=== PATIENT | female | born 1950 | race African-American/Black ===

== ENCOUNTER 2017-12-15 15:11 | Inpatient (IN) ==
[2017-12-15 16:48] LABS: Basophils # 0.1 10*3/uL (0.0-0.2); Basophils % 0.3 % (0.0-0.8); Hematocrit 40.5 VOL% (35.7-47.0); Hemoglobin 13.7 GM/DL (12.0-16.0); Immature Granulocytes % 1.2 %; Immature Granulocytes Absolute 0.35 #; Lymphocytes # 2.8 10*3/uL (1.4-4.0); Lymphocytes % 9.9 % (21.3-54.2); Mean Corpuscular HGB Conc 33.8 GM/DL (32-36); Mean Corpuscular Hemoglobin 30 PG (27-34); Mean Platelet Volume 11.5 FL (9.6-12.0); Monocytes # 1.5 10*3/uL (0.11-0.8); Monocytes % 5.2 % (1.7-12.7); Neutrophils # 23.9 10*3/uL (1.4-7.4); Neutrophils % 83.4 % (38.7-73.9); Platelet Count 415 T/CUMM (130-400); Red Cell Distribution Width 14.6 % (9.3-17.3); White Blood Count 28.7 T/CUMM (4-12)
[2017-12-15] MEDS ORDERED: SODIUM CHLORIDE 0.9% 500 ML IV STA (16:53)
[2017-12-15] MEDS ORDERED: PANTOPRAZOLE 40 MG VIAL IV STA (16:53)
[2017-12-15] MEDS ORDERED: ONDANSETRON 4 MG/2 ML VIAL IV STA (16:53)
[2017-12-15 16:57] LABS: Partial Thromboplastin Time 26.5 SECS (0-40)
[2017-12-15 16:59] LABS: Albumin 2.9 G/DL (3.4-5.0); Bilirubin,Total 0.4 MG/DL (0.2-1.0); Calcium 10.4 MG/DL (8.5-10.1); Osmolality,Calculated 290.8 MOS/KG (273-304); Potassium 4.4 MMOL/L (3.5-5.1); Total Protein 6.8 G/DL (6.4-8.3)
[2017-12-15] MEDS ORDERED: ONDANSETRON 4 MG/2 ML VIAL ONE (17:01)
[2017-12-15] MEDS ORDERED: PANTOPRAZOLE 40 MG VIAL IV ONE (17:02)
[2017-12-15 17:15] LABS: Lymphocytes 10 % (20-55); Platelet Estimate Increased; Segmented Neutrophils 86 % (50-85); Total Cells Counted 100
[2017-12-15] MEDS ORDERED: cefTRIAXone 1,000 MG in SODIUM CHLORIDE 0.9% 100 ML IV STA (17:48)
[2017-12-15 18:27] LABS: Apearance,Urine CLEAR (Clear); Bilirubin,Urine Negative (Negative); Blood, Urine Negative (Negative); Glucose,Urine (UA) Negative (Negative); Ketones,Urine 5 mg/dL (Negative); Nitrite,Urine Negative (Negative); Protein,Urine Negative; RBC,Urine <1 /HPF (0-4); Squamous Epithelial Cell,Urine Occasional /HPF (0-10); Urine Color Straw (Yellow); Urine Specific Gravity 1.018 (1.001-1.035); Urine Urobilinogen < 2.0 EU/DL (0.2-1.0); WBC,Urine 1 /HPF (0-6)
[2017-12-15] MEDS ORDERED: ONDANSETRON 4 MG/2 ML VIAL IV PRN (18:28)
[2017-12-15] MEDS ORDERED: ACETAMINOPHEN 325 MG TABLET PO PRN (18:28)
[2017-12-15] MEDS ORDERED: diphenhydrAMINE CAP 25 MG CAPSULE PO PRN (18:28)
[2017-12-15] MEDS ORDERED: MORPHINE 4 MG/1 ML VIAL IV PRN (18:28)
[2017-12-15] MEDS ORDERED: POLYVINYL ALCOHOL 1.4% OPH SOLN 15 ML BOTTLE BOTH EYES PRN (18:32)
[2017-12-15] MEDS ORDERED: LACTULOSE 20 GM/30 ML UDCUP PO SCH (21:00)
[2017-12-15] MEDS ORDERED: PANTOPRAZOLE 40 MG VIAL IV SCH (21:00)
[2017-12-15] MEDS: ATORVASTATIN 40 MG TABLET PO SCH (22:00)
[2017-12-15] MEDS: LATANOPROST 0.005% OPH SOLN 2.5 ML BOTTLE BOTH EYES SCH (22:01)
[2017-12-15] MEDS: MECLIZINE 25 MG TABLET PO SCH (22:01)
[2017-12-15] MEDS: BRINZOLAMIDE 1% OPH SUSP 10 ML BOTTLE BOTH EYES SCH (22:01)
[2017-12-15] MEDS: SODIUM CHLORIDE 0.9% 1,000 ML IV SCH (22:01)
[2017-12-15] MEDS: AZELASTINE NASAL 137 MCG/SPRAY 30 ML BOTTLE BOTH NARES SCH (22:02)
[2017-12-16] MEDS: SODIUM CHLORIDE 0.9% 1,000 ML IV SCH ×4 (06:23→23:15)
[2017-12-16 06:36] LABS: Basophils # 0.1 10*3/uL (0.0-0.2); Basophils % 0.2 % (0.0-0.8); Hematocrit 34.6 VOL% (35.7-47.0); Hemoglobin 11.8 GM/DL (12.0-16.0); Immature Granulocytes % 0.9 %; Immature Granulocytes Absolute 0.26 #; Lymphocytes # 3.4 10*3/uL (1.4-4.0); Lymphocytes % 11.9 % (21.3-54.2); Mean Corpuscular HGB Conc 34.1 GM/DL (32-36); Mean Corpuscular Hemoglobin 30 PG (27-34); Mean Platelet Volume 10.9 FL (9.6-12.0); Monocytes # 1.8 10*3/uL (0.11-0.8); Monocytes % 6.4 % (1.7-12.7); Neutrophils # 23.2 10*3/uL (1.4-7.4); Neutrophils % 80.6 % (38.7-73.9); Platelet Count 331 T/CUMM (130-400); Red Blood Count 3.93 MC/CUMM (3.8-5.5); Red Cell Distribution Width 14.4 % (9.3-17.3); White Blood Count 28.8 T/CUMM (4-12)
[2017-12-16 07:05] LABS: Calcium 10.1 MG/DL (8.5-10.1); Osmolality,Calculated 279.8 MOS/KG (273-304); Potassium 4.6 MMOL/L (3.5-5.1); Risk Ratio 3.75; Thyroid Stimulating Hormone 1.23 uIU/ml (0.358-3.74); VLDL CHOLESTEROL 15.8 MG/DL
[2017-12-16 07:46] LABS: Lymphocytes 14 % (20-55); Segmented Neutrophils 84 % (50-85); Total Cells Counted 100
[2017-12-16 07:47] LABS: Atypical Lymphocytes Few; Hypochromasia 1+; Microcytosis Slight; Platelet Estimate Normal
[2017-12-16] MEDS ORDERED: DEXTROSE 50% 25 GM/50 ML VIAL IV PRN (08:45)
[2017-12-16] MEDS ORDERED: GLUCAGON 1 MG VIAL IM PRN (08:45)
[2017-12-16] MEDS: MECLIZINE 25 MG TABLET PO SCH ×4 (08:58→20:43)
[2017-12-16] MEDS: CHLORTHALIDONE 25 MG TABLET PO SCH (08:58)
[2017-12-16] MEDS: amLODIPine 10 MG TABLET PO SCH (08:59)
[2017-12-16] MEDS: LISINOPRIL 20 MG TABLET PO SCH (08:59)
[2017-12-16] MEDS: BRINZOLAMIDE 1% OPH SUSP 10 ML BOTTLE BOTH EYES SCH ×3 (09:06→20:43)
[2017-12-16] MEDS: POLYETHYLENE GLYCOL POWDER 17 GM PACK PO SCH (10:08)
[2017-12-16] MEDS: FLUTICASONE 50 MCG NASAL SPRAY 16 GM BOTTLE BOTH NARES SCH (10:12)
[2017-12-16] MEDS: AZELASTINE NASAL 137 MCG/SPRAY 30 ML BOTTLE BOTH NARES SCH ×3 (10:12→21:35)
[2017-12-16] MEDS: INSULIN LISPRO 100 UNIT/ML SUBCUT SCH (16:25)
[2017-12-16] MEDS: PANTOPRAZOLE 40 MG TABLET PO SCH (18:27)
[2017-12-16] MEDS: ATORVASTATIN 40 MG TABLET PO SCH (20:43)
[2017-12-16] MEDS: LATANOPROST 0.005% OPH SOLN 2.5 ML BOTTLE BOTH EYES SCH (20:43)
[2017-12-17 07:08] LABS: Basophils # 0.1 10*3/uL (0.0-0.2); Basophils % 0.4 % (0.0-0.8); Eosinophils # 0.1 10*3/uL (0.0-0.87); Eosinophils % 0.5 % (0.00-10.9); Hematocrit 32.4 VOL% (35.7-47.0); Hemoglobin 10.8 GM/DL (12.0-16.0); Immature Granulocytes % 0.8 %; Immature Granulocytes Absolute 0.17 #; Lymphocytes # 4.7 10*3/uL (1.4-4.0); Lymphocytes % 21.9 % (21.3-54.2); Mean Corpuscular HGB Conc 33.3 GM/DL (32-36); Mean Corpuscular Hemoglobin 30 PG (27-34); Mean Corpuscular Volume 89.5 FL (87-102); Mean Platelet Volume 12.8 FL (9.6-12.0); Monocytes # 1.6 10*3/uL (0.11-0.8); Monocytes % 7.3 % (1.7-12.7); Neutrophils # 14.9 10*3/uL (1.4-7.4); Neutrophils % 69.1 % (38.7-73.9); Platelet Count 125 T/CUMM (130-400); Red Blood Count 3.62 MC/CUMM (3.8-5.5); Red Cell Distribution Width 14.6 % (9.3-17.3); White Blood Count 21.5 T/CUMM (4-12)
[2017-12-17 07:54] LABS: Total Protein 6.1 G/DL (6.4-8.3)
[2017-12-17] MEDS: PANTOPRAZOLE 40 MG TABLET PO SCH (08:01)
[2017-12-17] MEDS: INSULIN LISPRO 100 UNIT/ML SUBCUT SCH (08:25)
[2017-12-17] MEDS ORDERED: LIDOCAINE 2% 5 ML VIAL ONE (09:07)
[2017-12-17] MEDS ORDERED: PROPOFOL 200 MG/20 ML VIAL IV ONE (09:07)
[2017-12-17] MEDS ORDERED: ETOMIDATE 20 MG/10 ML VIAL IV ONE (09:07)
[2017-12-17] MEDS ORDERED: PHENYLEPHRINE 1 MG/10 ML SYRINGE IV ONE (09:07)
[2017-12-17] MEDS: MECLIZINE 25 MG TABLET PO SCH ×2 (10:27→15:33)
[2017-12-17] MEDS: POLYETHYLENE GLYCOL POWDER 17 GM PACK PO SCH (10:27)
[2017-12-17] MEDS: BRINZOLAMIDE 1% OPH SUSP 10 ML BOTTLE BOTH EYES SCH (10:27)
[2017-12-17] MEDS: CHLORTHALIDONE 25 MG TABLET PO SCH (10:28)
[2017-12-17] MEDS: amLODIPine 10 MG TABLET PO SCH (10:28)
[2017-12-17] MEDS: AZELASTINE NASAL 137 MCG/SPRAY 30 ML BOTTLE BOTH NARES SCH (10:31)
[2017-12-17] MEDS: FLUTICASONE 50 MCG NASAL SPRAY 16 GM BOTTLE BOTH NARES SCH (10:31)
[2017-12-17] MEDS: LISINOPRIL 20 MG TABLET PO SCH (10:31)
[2017-12-17 10:57] LABS: Albumin (SPE) 3.4 G/DL (3.2-5.3); Alpha 1 (SPE) 0.2 G/DL (0.1-0.4); Alpha 1 (SPE) Rel % 3.5 %; Alpha 2 (SPE) 0.8 G/DL (0.4-1.0); Alpha 2 (SPE) Rel % 12.8 %; Beta (SPE) 0.7 G/DL (0.5-1.1); Beta (SPE) Rel % 12.1 %; Gamma (SPE) Rel % 16.6 %; Total Protein (Chem) 6.1 G/DL (6.4-8.3)
[2017-12-17] MEDS: SODIUM CHLORIDE 0.9% 1,000 ML IV SCH (12:43)
[2017-12-17 13:07] VITALS: BP 104/62
[2017-12-18 09:05] LABS: Immuno Free Light Chain Kappa 18.42 MG/DL (0.33-1.94); Immuno Free Light Chain Lambda 1.59 MG/DL (0.57-2.63); Immuno Free Light Chain Ratio 11.58 MG/DL (0.26-1.65)
== END 2017-12-17 15:37 | disposition home or self-care (01) | DRG 379 ==
LOC: N.ED 15:11 → N.EDINP 17:47 → SUATTDRO 17:47 → N.5E 20:30
PROVIDERS: ADMIT Internal Medicine; ATTEND Internal Medicine